=== PATIENT | female | born 1970 | race Caucasian/White ===

== ENCOUNTER → 2016-06-27 | Outpatient (CLI) | payer OTHER | LOC: FIMAGING 16:23 | PROVIDERS: ATTEND Physician Assistant | DX: M79.602 Pain in left arm (principal) ==

== ENCOUNTER → 2016-08-01 | Outpatient (CLI) | payer OTHER | LOC: FIMAGING 12:23 | DX: Z12.31 Encounter for screening mammogram for malignant neoplasm of breast (principal) | CPT/HCPCS: G0202 ==

== ENCOUNTER → 2016-08-16 | Outpatient (CLI) | payer OTHER | LOC: CIMAGING 13:14 | DX: R92.8 Other abnormal and inconclusive findings on diagnostic imaging of breast (principal) | CPT/HCPCS: G0206 ==

== ENCOUNTER → 2017-08-02 | Outpatient (CLI) | payer OTHER | LOC: FIMAGING 11:04 | PROVIDERS: ATTEND Obstetrics & Gynecology | DX: Z12.31 Encounter for screening mammogram for malignant neoplasm of breast (principal) ==

== ENCOUNTER → 2017-09-06 | Outpatient (CLI) | payer OTHER | LOC: CIMAGING 12:42 | PROVIDERS: ATTEND Nurse Practitioner | DX: E01.0 Iodine-deficiency related diffuse (endemic) goiter (principal); M35.9 Systemic involvement of connective tissue, unspecified | CPT/HCPCS: 76536-PO ==

== ENCOUNTER 2018-03-28 05:56 | Day surgery (SDC) | payer OTHER ==
--- NOTE | 2018-03-17 18:08 | GHP ---
DATE OF ADMISSION: 03/28/2018 DATE OF OPERATION: 03/28/2018 PREOPERATIVE DIAGNOSES: 1. Right ovarian cyst. 2. Submucosal fibroid and menorrhagia. SURGERY TO BE PERFORMED: 1. Laparoscopic right ovarian cystectomy. 2. Hysteroscopy, dilation and curettage, myomectomy. 3. Removal and replacement of a Mirena IUD. HISTORY OF PRESENT ILLNESS: The patient is a 47-year-old 2, para 2-0-0-2, who presented comp laining of increasing bleeding over the last several months, bloating and tenderness in her abdomen. She underwent an ultrasound for evaluation on February 11, 2018, which revealed a submucosal fibroid that was 1.89 x 1.48 x 1.57 cm that was inferior to the left arm of her IUD. She also had a right ov bernardo simple cyst that measured 5.2 x 3.8 x 4.5 cm. Left ovary was normal. The patient continues to have dysfunctional bleeding, bleeding throughout the month, occasional heavy episodes, bleeding for 7-10 days a month, and discomfort in her pelvis causing difficulties with work, exercise, having inte rcourse, etc. She wishes to have definitive treatment for both her ovarian cyst as well as the fibro id. We discussed endometrial ablation versus replacement of her Mirena IUD. The patient needs contr aception and declines tubal salpingectomy at the time. Would prefer to replace her Mirena IUD kal boogie this has worked well for her for several years. PAST OBSTETRICAL HISTORY: She had spontaneous vaginal delivery x2. She had a spontaneous a nd a missed with a D and C. During her D and C, she had a hemorrhage and required a blood t ransfusion. PAST GYNECOLOGICAL HISTORY: Normal menstrual triad. No significant history of abnormal Paps or STDs . Her last Pap was in August of this year, and it was negative and negative for HPV. She has had the M jewel IUD for contraception. PAST MEDICAL HISTORY: She has hypothyroidism, is on Synthroid, and that is her only medical problem. PAST SURGICAL HISTORY: She had an appendectomy, a cholecystectomy. She has had 3 shoulder surgeries . She had a right hip labrum repair, wrist surgery, and the D and C secondary to missed , in which she had a blood transfusion. ALLERGIES: She has multiple drug allergies. She is allergic to Ceclor and sulfa, which both give he r rash. She is allergic to latex, which gives her hives. SOCIAL HISTORY: She is . 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 She has 2 boys that are 14 and 9. She denies tobacco. Has alcohol approximately once a month. No drug use. Moderate caffeine use, not re gular exercise. FAMILY HISTORY: Noncontributory. OBJECTIVE: VITAL SIGNS: Today blood pressure is 112/70. Weight is 201 pounds. GENERAL: She is a well-developed, well-nourished white female in no acute distress. LUNGS: Clear to auscultation bila terally. HEART: Regular rate and rhythm. No murmur. ABDOMEN: Soft, nontender, nondistended. Mod erate tenderness in the right adnexa to deep palpation. PELVIC: Normal external genitalia, normal p arous cervix. Uterus was anteverted, anteflexed, mobile. IUD was in place and there was adnexal ful lness on the right. IMAGING DATA: Ultrasound results were as above. ASSESSMENT/PLAN: 47-year-old 4, para 2-0-2-2 with dysfunctional uterine bleeding secondary t o submucosal fibroid with a Mirena in place and a painful right ovarian cyst. She will undergo a lap aroscopic right ovarian cystectomy, hysteroscopy, D and C, submucosal myomectomy, and replacement of her Mirena IUD. She was consented for the procedure today. She understood the risks and benefits, t he risks including bleeding, infection, damage to organs, uterus, tubes, ovaries, bowel, bladder, ner ves, blood vessels, ureters, need for oophorectomy, need for open procedures or additional procedures , and also electrolyte imbalances or incomplete treatment of her dysfunctional bleeding. She underst ood these risks and benefits and agreed to proceed. /[id number]/MODL
[2018-03-28] MEDS ORDERED: LR 1,000 ML IV ONE (06:09)
[2018-03-28] MEDS ORDERED: LIDOCAINE 1% 2 ML INJ ID PRN (06:09)
[2018-03-28] MEDS ORDERED: LIDOCAINE 1% 2 ML INJ ONE (06:13)
[2018-03-28] MEDS ORDERED: BUPIVACAINE/EPI 0.5% 30 ML SDV ONE (06:47)
[2018-03-28] MEDS ORDERED: SILVER NITRATE APPLICATOR 1 APPL TP ONE (06:48)
[2018-03-28] MEDS ORDERED: MIDAZOLAM 2 MG/2 ML VIAL IVP ONE (06:49)
--- NOTE | 2018-03-28 06:49 | PDANEPAE ---
ANE History of Present Illness Laparoscopic R salpingectomy, D&C, hysteroscopy ANE Past Medical History - Cardiovascular History Hx Hypertension: No Hx Arrhythmias: No Hx Chest Pain: No Hx Coronary Artery / Peripheral Vascular Disease: No Hx CHF / Valvular Disease: No Hx Palpitations: No - Pulmonary History Hx COPD: No Hx Asthma/Reactive Airway Disease: Yes Hx Recent Upper Respiratory Infection: No Hx Oxygen in Use at Home: No Hx Sleep Apnea: No Sleep Apnea Screening Result - Last Documented: Negative Pulmonary History Comment: ENVIRONMENTAL INDUCED ASTHMA - Neurologic History Hx Cerebrovascular Accident: No Hx Seizures: No Hx Dementia: No Neurologic History Comment: MIGRAINES OCCAS - Endocrine History Hx Diabetes: No Endocrine History Comment: HYPOTHYROID - Renal History Hx Renal Disorders: No - Liver History Hx Hepatic Disorders: No Hepatic History Comment: CHOLECYSTECTOMY - Neurological & Psychiatric Hx Hx Neurological and Psychiatric Disorders: No - Cancer History Hx Cancer: No Cancer History Comment: BASAL CELL REMOVED - Congenital Disorder History Hx Congenital Disorders: No - GI History Hx Gastrointestinal Disorders: No - Other Health History Other Health History: NEG - Chronic Pain History Chronic Pain: Yes (PLANTAR FASCIITIS) - Surgical History Prior Surgeries: L BREAST BX X2. CHOLECYSTECTOMY. APPENDECTOMY. D&C W/ TRANSFUSION. R SHOULDER SCOPE. R WRIST SURG. R HIP LABRUM REPLACEMENT. L SHOULDER SURG X2 ANE Review of Systems Review of systems is: negative Review of Systems: - Exercise capacity METS (RN): 4 METS ANE Patient History - Allergies Allergies/Adverse Reactions: cefaclor [From Ceclor] Allergy (Verified 03/13/18 16:15) Rash latex Allergy (Verified 03/13/18 16:17) SOLID RED RAISED AREA Sulfa (Sulfonamide Antibiotics) Allergy (Verified 03/13/18 16:15) Rash - Home Medications Home medications: home medication list seen and reviewed Home Medications: Advil 03/13/18 [Last Taken Unknown] Albuterol Hfa Anes Only 03/13/18 [Last Taken Unknown] Azelastine 03/13/18 [Last Taken Unknown] Synthroid 03/13/18 [Last Taken Unknown] - NPO status NPO Since - Liquids (Date): 03/28/18 NPO Since - Liquids (Time): 04:00 NPO Since - Solids (Date): 03/27/18 - Anes Hx Anes Hx: no prior problems - Smoking Hx Smoking Status: Never smoked - Family Anes Hx Family Anes Hx: none Family Hx Anesthesia Complications: NEG ANE Labs/Vital Signs - Vital Signs Vital Signs: reviewed preoperatively; see RN documention for details Height: 180.34 cm Weight: 90.718 kg ANE Physical Exam - Airway Neck exam: FROM Mallampati Score: Class 1 Mouth exam: normal dental/mouth exam - Pulmonary Pulmonary: no respiratory distress - Cardiovascular Cardiovascular: regular rate and rhythym - ASA Status ASA Status: II ANE Anesthesia Plan Anesthesia Plan: general endotracheal anesthesia
[2018-03-28] MEDS ORDERED: fentaNYL 250 MCG/5 ML INJ ONE (07:10)
[2018-03-28] MEDS ORDERED: LIDOCAINE 2% 100 MG/5 ML SYR ONE (07:10)
[2018-03-28] MEDS ORDERED: DEXAMETHASONE 4 MG/ML VIAL ONE (07:10)
[2018-03-28] MEDS ORDERED: ONDANSETRON 4 MG/2 ML VIAL ONE (07:10)
[2018-03-28] MEDS ORDERED: PROPOFOL 200 MG/20 ML VIAL ONE (07:10)
[2018-03-28] MEDS ORDERED: SUGAMMADEX SODIUM 200 MG/2 ML VIAL IVP ONE (07:10)
[2018-03-28] MEDS ORDERED: ROCURONIUM 50 MG/5 ML VIAL ONE (07:10)
--- NOTE | 2018-03-28 07:24 | PDHPUP ---
History & Physical Update H&P update statement: This history and physical update is based on an assessment of the patient which was completed after admission or registration (within 24 hours), but prior to the surgery/procedure. H&P update: H&P reviewed & patient examined, changes noted (Pt wishes to have a right oopherectomy instead of a cystectomy)
[2018-03-28] MEDS ORDERED: HYDROCODONE/APAP 5/325 TAB PO PRN (07:53)
[2018-03-28] MEDS ORDERED: MEPERIDINE 25 MG/0.5 ML AMP IVP PRN (07:53)
[2018-03-28] MEDS ORDERED: ALBUTEROL 3 ML DEYVIAL IH PRN (07:53)
[2018-03-28] MEDS ORDERED: oxyCODONE IR 5 MG TAB PO PRN ×2 (07:53→09:41)
[2018-03-28] MEDS ORDERED: PROMETHAZINE HCL 25 MG/ML INJ IVP PRN (07:53)
[2018-03-28] MEDS ORDERED: ACETAMINOPHEN 500 MG TAB PO PRN (07:53)
[2018-03-28] MEDS ORDERED: HYDROmorphONE/DILAUDID 2 MG/ML INJ IVP PRN (07:53)
[2018-03-28] MEDS ORDERED: fentaNYL 100 MCG/2 ML INJ IVP PRN (07:53)
[2018-03-28] MEDS ORDERED: DEXAMETHASONE 4 MG/ML VIAL IVP PRN (07:53)
[2018-03-28] MEDS ORDERED: ONDANSETRON 4 MG/2 ML VIAL IVP PRN (07:53)
[2018-03-28] MEDS ORDERED: NALOXONE HCL 0.4 MG/ML INJ IVP PRN (07:53)
--- NOTE | 2018-03-28 07:53 | POSTANESTH ---
Post Anesthetic Evaluation Cardiovascular Status: Normal, Stable, Similar to Pre-Op Cond Respiratory Status: Normal, Stable, Similar to Pre-op Cond. Level of Consciousness/Mental Status: Can Participate in Eval, Mildly Sleepy, Arousable Pain Control: Adequate, Prn Tx Ordered Nausea/Vomiting Control: Adequate, Prn Tx Ordered Complications Possibly Related to Anesthesia: None Noted
[2018-03-28] MEDS ORDERED: VASOPRESSIN 20 UNIT/ML VIAL ONE (09:25)
[2018-03-28] MEDS ORDERED: KETOROLAC 30 MG/1 ML SDV ONE (09:35)
[2018-03-28] MEDS ORDERED: IBUPROFEN 600 MG TAB PO PRN (09:41)
[2018-03-28] MEDS ORDERED: ONDANSETRON DISINTEGRATING 4 MG TAB PO PRN (09:41)
--- NOTE | 2018-03-28 09:51 | POSTOPPROG ---
Post Op Note Date of Operation: 03/28/18 Surgeon: Debora Morley Family Dinner Service Specialist: LIT Cameron Anesthesiologist: Dr Diaz Anesthesia: GET(General Endotracheal) Pre-op Diagnosis: Right ovarian cyst, menorrhagia, submucosal fibroid Post-op Diagnosis: Left ovarian cyst, menorrhagia, submucosal fibroid Indication: pelvic pain, menorrhagia Procedure: Left salpingo-oopherectomy, Hysteroscopy D and C, myomectomy, insertion IUD Findings: Large Left ovarian simple cyst, normal right ovary,submucosal uterine fibro Inf/Abcess present in the surg proc area at time of surgery?: No Depth: Organ Space EBL: 50-100 Total fluids administered: 900 Complications: none Specimen(s): left ovary and tube, submucosal uterine fibroid, endometrial curettings
[2018-03-28] MEDS ORDERED: fentaNYL 100 MCG/2 ML INJ ONE (10:03)
[2018-03-28] MEDS ORDERED: oxyCODONE IR 5 MG TAB ONE (10:03)
[2018-03-28 11:48] VITALS: BP 112/69
--- NOTE | 2018-03-28 14:19 | GOP ---
DATE OF OPERATION: 03/28/2018 SURGEON: Debora Morley MD PREOPERATIVE DIAGNOSIS: 1. Right ovarian cyst. 2. Submucosal fibroid and menorrhagia. POSTOPERATIVE DIAGNOSIS: Left ovarian cyst. 1. Submucosal fibroid and menorrhagia. PROCEDURE PERFORMED: Laparoscopic left salpingo-oophorectomy, hysteroscopy, dilation and curettage, myomectomy and removal and replacement of Mirena IUD. FINDINGS: SPECIMENS: Pathologic specimen will be: 1. Left tube and ovary. 1. Submucosal uterine fibroid and endometrial curettings. 2. ESTIMATED BLOOD LOSS: 100 cc. INDICATIONS: Fide is a 47-year-old 2, para 2-0-0-2, who presented complaining of increasing bleeding over the last several months, bloating and tenderness in her abdomen. She had an ultrasoun d for evaluation and revealed a submucosal fibroid that was 1.89 x 1.48 x 1.5 cm and it was displacin g her Mirena IUD. She also had a right ovarian simple cyst measuring 5.2 x 3.8 x 4.5 cm. The left o vary was seen as normal. Because the patient continued to have dysfunctional bleeding, bleeding thro ughout the month, occasional really heavy episodes of bleeding for 7-10 days a month and discomfort i n her pelvis causing difficulties with work and exercise. She wished to have definitive treatment fo r both her ovarian cyst as well as her submucosal fibroid. We discussed treatment options of hystere ctomy versus laparoscopic removal of the ovarian cyst and a hysteroscopy, myomectomy, plus or minus a n endometrial ablation. The patient wished to have oophorectomy to definitively remove the cyst and prevent further cyst formation on her ovary and myomectomy with insertion of an IUD. She did not wis h to have the ablation. The patient perceived her pain on the right and the ultrasound had said the cyst was on the right ova ry and therefore she wished to have a right oophorectomy. She was consented for the procedure. She understood the risks and benefits, the risks including bleeding, infection, damage to internal organs , uterus, tubes, ovaries, bowel, bladder, nerves, blood vessels, ureters, need for additional procedu res or need for open procedure. Also risk of uterine perforation with hysteroscopy and risks of incr easing bleeding. She understood these risks and benefits and agreed to proceed. DESCRIPTION OF PROCEDURE: The patient was taken to the operating room where she was placed under gen eral anesthesia without difficulty. She was prepped and draped in the dorsal lithotomy position, and a Zazueta was placed in her bladder. After a WHO time-out was performed and adequate anesthesia was a ssured an open-sided speculum was placed in the vagina, and a single-tooth tenaculum was used to gras p the anterior lip of the cervix. An acorn uterine manipulator was placed through the cervix. Attention was then turned to the abdominal portion of the procedure where after injection of Marcaine , a 5 mm skin incision was made in the infraumbilical skin fold and the 5 mm atraumatic trocar was pl aced under direct visualization through the umbilicus. This was performed without difficulty. Pneum operitoneum was then created with carbon dioxide gas. The patient was placed in steep Trendelenburg. After injection of Marcaine, a 5 mm skin incision was made in the right and a 5 mm atraumatic port was placed in the right under direct visualization and a 10 mm port was placed on the left also witho ut difficulty. Careful inspection of the pelvis revealed a normal uterus, an enlarged left ovary wit h a large simple cyst and a very normal right ovary and tube. The left ovary was grasped and stabili zed and a needle was placed through the laparoscopic port and inserted into the simple cyst wall and simple fluid was removed from the cyst under ultrasound guidance. Approximately 75 cc of fluid was r emoved. The needle was removed and the LigaSure was used to dissect the ovary free from the sidewall . The ovary was lifted and the left ureter was grasped in the pelvic brim, peristalsing normally low into the pelvis. The decision was then made to proceed with removal of the left tube and ovary codie use inspection of the right ovary was normal and patient did not wish to become menopausal and she wa nts to keep her ovary, so the left ovary was grasped and the LigaSure was used to ligate the fimbriat ed tube, the infundibulopelvic ligament, the utero-ovarian ligament, and along the mesosalpinx and th e tube and ovary complex were removed with good hemostasis assured. The EndoCatch bag was placed thr ough the 10 mm port. The tube and ovary were inserted into this and removed through the 10 mm port w ithout difficulty. Again, inspection of the pelvis revealed good hemostasis along the pedicles. Nor mal peristalsis of the left ureter. Normal right ovary and uterus. The patient had previously had a n appendectomy and a cholecystectomy and the rest of her pelvis was grossly observed to be normal. T he ports were removed. Pneumoperitoneum was allowed to escape. The fascia was closed with 0 Vicryl [id number] suture on the left and the skin was closed with Monocryl subcuticularly. Attention was then turned to the hysteroscope portion of the procedure where the acorn manipulator wa s removed. The speculum was reinserted. The uterus sounded to 9.5 to 10 cm. The cervix was progres sively dilated with Emmanuel dilators to a #6. The #6 TruClear hysteroscope was then gently advanced fr om the cervix to the fundus, and inspection was performed. There was a large submucosal fibroid on t he anterior wall of the cervix mid portion of the uterus. The Mirena IUD was visualized and there wa s some redundant tissue, but no other definitive abnormalities. The Mirena IUD was removed. The fib roid blade morcellator was advanced through the operative channel. After fluid management system was calibrated morcellation of the fibroid took place with several passages without difficulty. A clear view of the uterus revealed normal tubes and normal endometrial cavity. The hysteroscope was then r emoved. There was bleeding along the tenaculum sites and this was cauterized with silver nitrate. T he Mirena was then seated at 10 mm in the endometrium and the strings were cut. The speculum was rem tapan. Good hemostasis was assured. The patient tolerated the procedure well. Sponge, lap and needl e instrument counts were correct x2. Patient went to the recovery room in good condition. FLUID REPLACEMENT: 900 cc. URINE OUTPUT: 100 cc. /[id number]/MODL
== END 2018-03-28 11:40 | disposition home or self-care (01) ==
LOC: FSGY 05:56
PROVIDERS: ATTEND Obstetrics & Gynecology
PROC: 0UB98ZZ Excision of Uterus, Via Natural or Artificial Opening Endoscopic (ICD-10-PCS; principal; 2018-03-28 07:15)
PROC: 0UT Female Reproductive System, Resection (ICD-10-PCS; principal; 2018-03-28 07:15)
PROC: 0UPDXHZ Removal of Contraceptive Device from Uterus and Cervix, External Approach (ICD-10-PCS; principal; 2018-03-28 07:15)
PROC: 0UH98HZ Insertion of Contraceptive Device into Uterus, Via Natural or Artificial Opening Endoscopic (ICD-10-PCS; principal; 2018-03-28 07:15)
PROC: 0UT18ZZ Resection of Left Ovary, Via Natural or Artificial Opening Endoscopic (ICD-10-PCS; principal; 2018-03-28 07:15)
DX: N83.202 Unspecified ovarian cyst, left side (principal); D25.0 Submucous leiomyoma of uterus; N92.0 Excessive and frequent menstruation with regular cycle; E03.9 Hypothyroidism, unspecified
CPT/HCPCS: 58300; 58561; 58661; C1782; J1100; J1885; J2001; J2250; J2405; J2704; J3010

== ENCOUNTER → 2018-05-21 | Outpatient (CLI) | payer BC ==
[~2018-05-21] MED LIST: IOHEXOL 300 mgI/ML (OMNIPAQUE) 150 ML BTL IV ONE
== END ==
LOC: FIMAGING 07:59
PROVIDERS: ATTEND Nurse Practitioner
DX: N83.201 Unspecified ovarian cyst, right side (principal); E01.0 Iodine-deficiency related diffuse (endemic) goiter
CPT/HCPCS: Q9967

== ENCOUNTER → 2018-05-30 | Outpatient (CLI) | payer BC | LOC: FIMAGING 12:26 | PROVIDERS: ATTEND Nurse Practitioner | DX: N83.291 Other ovarian cyst, right side (principal); Z97.5 Presence of (intrauterine) contraceptive device; Z90.721 Acquired absence of ovaries, unilateral ==

== ENCOUNTER → 2018-08-05 | Outpatient (CLI) | payer BC | LOC: EMCIMAGING 10:19 | PROVIDERS: ATTEND Obstetrics & Gynecology | DX: Z12.31 Encounter for screening mammogram for malignant neoplasm of breast (principal) | CPT/HCPCS: 77067-PN ==